=== PATIENT | male | born 1985 | race Two or more races ===

== ENCOUNTER → 2024-05-12 | Outpatient (CLI) | payer BC, SELFPAY ==
[2024-05-12 16:39] LABS: Alanine Aminotransferase 95 U/L (10-49); Albumin, Serum 4.6 gm/dL (3.5-5.0); Albumin/Globulin Ratio 1.7 (1.2-2.2); Alkaline Phosphatase 85 U/L (46-116); Anion Gap 8 (7-16); Aspartate Amino Transferase 51 U/L (0-34); BUN/Creatinine Ratio 11 Ratio (12-20); Bilirubin,Total 0.6 mg/dL (0.3-1.2); Blood Urea Nitrogen 14 mg/dL (9-23); Calcium 9.5 mg/dL (8.3-10.6); Calcium (Corrected) 9.5 mg/dL (8.5-10.1); Carbon Dioxide 24.3 mMol/L (20.0-31.0); Chloride 108 mMol/L (98-107); Creatinine (Component) 1.3 mg/dL (0.6-1.3); Globulin 2.7 gm/dL (2.3-3.5); Glucose 97 mg/dL (74-106); Osmolality,Calculated 279 (275-295); Potassium 3.8 mMol/L (3.4-5.1); Sodium 140 mMol/L (136-145); Total Protein 7.3 gm/dL (5.7-8.2); eGFR > 60 See Note
[2024-05-18 06:33] LABS: Testosterone,Total* 363 ng/dL (250-1100)
== END | disposition home or self-care (01) ==
LOC: COPL 15:30
PROVIDERS: PCP Family Medicine; Referring Provider Nurse Practitioner Family; Visit Provider Nurse Practitioner Family
DX: Z00.00 Encounter for general adult medical examination without abnormal findings (principal); R74.01 Elevation of levels of liver transaminase levels
CPT/HCPCS: 36415; 80053; 84403

== ENCOUNTER 2024-08-09 17:10 | Emergency (ER) | payer BC, SELFPAY ==
[2024-08-09 17:11] VITALS: BMI 41.8
--- NOTE | 2024-08-09 17:25 | XR_ITS ---
Examination: CT abdomen and pelvis without contrast. Coronal 3-D reconstructions. Sagittal 2-D reconstructions. Date and time of exam:August 09, 2024 1703 hours Indications: Sudden onset bilateral upper abdominal pain nausea vomiting beginning 3 hours ago CTDI: vol (mGy): 13.0 DLP: (mGycm): 879 Technique: Axial images of the abdomen have been obtained, 3 mm slice thickness Intravenous contrast material has not been administered. Low dose protocols were performed. One or more of the following dose reduction techniques were used; automated exposure control, adjustment of the mA and/or KV according to patient size, use of iterative reconstruction technique. Findings: No focal liver or splenic lesions No gallstones No pancreatic or adrenal mass No renal or ureteral calculi Multiple fluid distended small bowel loops Aorta normal size Normal appendix Colonic diverticulosis, no diverticulitis No prostatomegaly Contracted urinary bladder Mild osteopenia Impression: Small bowel obstruction pattern, recommend Gastrografin small bowel series follow-up
--- NOTE | 2024-08-09 17:25 | PD.EDRME ---
Rapid Medical Screening Exam RME Arrival date/time: 08/09/24 17:10 39-year-old male presents emergency department complaints of left-sided abdominal pain Chief Complaint: Abdominal Pain
[2024-08-09 17:27] VITALS: BP 148/98; PULSE 98; RESP 18; TEMP 36.9; O2SAT 99
[2024-08-09] MEDS: KETOROLAC INJ 30 MG/ML VIAL IM (17:49)
[2024-08-09] MEDS: HYDROcodone/APAP 5/325 TABLET 1 TAB PO (17:49)
[2024-08-09] MEDS: METOCLOPRAMIDE INJ 5 MG/ML VIAL 2 ML 10 MG IM (17:51)
[2024-08-09 17:59] LABS: Basophils % (Auto) 0 % (0-2.5); Eosinophils # (Auto) 0.1 Thou/mm3 (0.0-0.5); Eosinophils % (Auto) 1 % (0-10); Hematocrit 54.3 % (41.0-53.0); Immature Granulocytes % (Auto) 1 % (0-0); Immature Granulocytes Auto 0.18 Thou/mm3 (0.00-0.00); Lymphocytes # (Auto) 1.3 Thou/mm3 (1.0-4.8); Lymphocytes % (Auto) 9 % (10-50); Mean Corpuscular Hemoglobin 30.8 pg (25.0-35.0); Mean Corpuscular Volume 88 fL (80-100); Monocytes # (Auto) 0.9 Thou/mm3 (0.0-0.8); Monocytes % (Auto) 7 % (0-12); Neutrophils # (Auto) 11.2 Thou/mm3 (1.8-7.7); Neutrophils % (Auto) 82 % (37-80); Nucleated Red Blood Cell % 0 /100 WBC (0); Platelet Count 256 Thou/mm3 (140-440); RDW Standard Deviation 43.6 fL (35.1-43.9); Red Blood Count 6.16 Miln/mm3 (4.50-5.90); White Blood Count 13.7 Thou/mm3 (3.8-10.6)
[2024-08-09 18:10] VITALS: BP 163/92; PULSE 78; RESP 20; TEMP 36.8; O2SAT 94
--- NOTE | 2024-08-09 18:15 | EDNOTE_ITS ---
ED Abdominal Pain RME/HPI General Chief Complaint: Abdominal Pain Stated complaint: BILAT. UPPER ABD PAIN X3 HRS Time seen by provider: 08/09/24 18:20 Arrival date/time: 08/09/24 17:10 Source: patient Mode of arrival: ambulatory Limitations: no limitations RME / HPI RME / HPI narrative: 08/09/24 17:10 39-year-old male presents emergency department complaints of left-sided abdominal pain. Dr. Dawson?s Main ED Evaluation: 39-year-old male, accompanied by his spouse, presents with diarrhea that began yesterday, which his describes as constant and persistent. Today, his symptoms progressed to include nausea and excessive vomiting without blood. The patient also reports associated dizziness, tingling sensations, and severe abdominal pain, which he describes as excruciating. However, on examination, he states that his symptoms have improved after receiving pain relief here, and he now rates his pain as 2/10. He denies any prior history of gallbladder issues or a family history of gallbladder disease. Related Data Previous Rx's ?Medication ?Instructions ?Recorded amoxicillin 875 mg-potassium 1 tab PO Q12H #14 tabs clavulanate 125 mg tablet hydrocodone 5 mg-acetaminophen 325 1 tab PO Q8H PRN br eakthrough pain 03/18/23 mg tablet #10 tabs ibuprofen 800 mg tablet 800 mg PO Q8H PRN pain #20 t abs 03/19/23 doxycycline monohydrate 100 mg 100 mg PO BID Urinary t ract 08/09/24 capsule infection 7 days #14 caps ondansetron 4 mg disintegrating 4 mg PO Q6H PRN nausea and 08/09/24 tablet vomiting #14 tabs Allergies Allergy/AdvReac Type Severity Reaction Status Date / Time No Known Allergies Allergy Unknown Unverified 08/09/24 17:14 Review of Systems Review of Systems Systems Reviewed: All systems reviewed, normal except as documented Past Medical History Past Medical History CARDIAC: Negative Cardiac Disorders or Congestive Heart Failure RESPIRATORY: Negative Chronic Obstructive Pulmonary Disease (COPD) GASTROINTESTINAL: Positive Gastrointestinal Disorders and Diverticulitis GENITOURINARY: Negative Renal Disease ENDOCRINE: Negative Diabetes Mellitus Type 1 or Diabetes Mellitus Type 2 Social History SMOKING STATUS: Never smoker ED Exam Narrative Physical exam: GENERAL APPEARANCE: alert and oriented x 4, well-developed, well-nourished, no acute distress VITALS: All vitals were reviewed and the pulse ox is 94% on room air, which is normal according to my interpretation. HEENT: Normocephalic, atraumatic; pupils equal, round, reactive to light; EOMI; mucous membranes pink, moist; oropharynx clear NECK: Supple LUNGS: CTABL; no wheezes, no rales, no rhonchi HEART: Regular rate, regular rhythm; normal S1, S2; no murmurs ABDOMEN: non distended; normal BS; soft, moderate tenderness is present on palpation of the right upper quadrant, moderate to severe epigastric tenderness with voluntary guarding, no tenderness in the right lower quadrant on deep palpation; positive Nieves?s sign is noted, no guarding, no rebound; no masses, no organomegaly, no hernia BACK: no CVA tenderness EXTREMITIES: atraumatic; no edema NEUROLOGIC: awake; alert and oriented x4; cranial nerves II-XII grossly intact; no focal sensory or motor deficits PSYCHIATRIC: appropriate mood and affect SKIN: warm, dry, normal color; no rashes General Limitations: Present no limitations Course Quality Measures none Orders Category Date Time Status Bedside COVID-19 Antigen Test NOW Care 08/09/24 19:53 Completed Bedside Influenza A&B Antigen Test NOW Care 08/09/24 18:58 Completed Grapple Crew Leader Q4H START 00 Care 08/09/24 18:35 Completed Continuous Pulse Oximetry NOW Care 08/09/24 18:35 Completed EKG (ED ONLY) *Do not use* NOW Care 08/09/24 18:35 Completed Insert IV STAT Care 08/09/24 18:41 Completed Consult to General Surgery Stat Cons 08/09/24 19:[address] abdomen pelvis wo con Stat Exams 08/09/24 17:25 Completed EKG (ED Only) Stat Exams 08/09/24 18:35 Draft US gall bladder Stat Exams 08/09/24 19:10 Completed XR chest 1V portable Stat Exams 08/09/24 18:35 Completed CBC Stat Lab 08/09/24 17:46 Completed Comprehensive Metabolic Panel Stat Lab 08/09/24 17:46 Completed Lipase Stat Lab 08/09/24 17:46 Completed Magnesium Stat Lab 08/09/24 17:46 Completed Troponin I Stat Lab 08/09/24 17:46 Completed UA, C/S IF [Urinalysis, C/S if Indicated] Stat Lab 08/09/24 18:18 Completed Urine Culture Stat Lab 08/09/24 18:18 Received HYDROcodone*/APAP 5/325 [Tow 5/325] Med 08/09/24 17:24 Discontinued 1 tab PO X1 ONE HYDROmorphone INJ [Dilaudid Inj] Med 08/09/24 19:00 Discontinued 0.5 mg IVP PRN Ketorolac Inj [Toradol Inj] Med 08/09/24 17:24 Discontinued 30 mg IM X1 ONE Metoclopramide Inj [Reglan Inj] Med 08/09/24 17:24 Discontinued 10 mg IM X1 ONE Sodium Chloride 0.9% 1000 ml [Ns] 1,000 ml Med 08/09/24 18:40 Discontinued IV 999 mls/hr Sodium Chloride 0.9% 1000 ml [Ns] 1,000 ml Med 08/09/24 19:00 Discontinued IV 999 mls/hr Oxygen Delivery NOW RT 08/09/24 18:32 Completed Vital Signs Vital signs: Vital Signs Temperature 98.5 F 08/09/24 17:27 Pulse Rate 98 08/09/24 17:27 Respiratory Rate 18 08/09/24 17:27 Blood Pressure 148/98 H 08/09/24 17:27 Pulse Oximetry (%) 99 08/09/24 17:27 Oxygen Delivery Method Room Air 08/09/24 17:27 Abdominal Pain MDM MDM Narrative MDM Narrative:: Differential diagnoses include cholecystitis, choledocholithiasis, gallstone pancreatitis, pancreatitis, gastritis, and peptic ulcer disease. The patient is a 39-year-old male presenting with persistent diarrhea, nausea, excessive vomiting, and severe abdominal pain, which initially was described as excruciating but has improved with pain management. His symptoms are associated with dizziness and tingling sensations. 1907 Case d/w Dr. Bailey, general surgeon on-call, does not feel it is SBO at this time. Pending US gallbladder and IVF. 2240: Patient feels significantly better and is stable to be discharged home. Scribe Attestation: I, Cailin David, am scribing for and in the presence of Dr. Dawson. Provider Notation: Although this document has been carefully reviewed, there may still be some phonetic and other typographical errors. These errors are purely grammatical due to imperfections in the software program and should not be construed in any way to compromise the substance of the patient's medical care during this visit. Patient data External records reviewed:: [facility] previous records Clinical information provided by:: patient and spouse Social determinants that could affect healthcare access:: none Patient has the following chronic illnesses:: see PMH How is presenting disease/condition affected by chronic disease/condition?: un effected by Evaluation data The following diagnostics were reviewed and interpreted by me:: lab results, radiology exam(s) and EKG tracing(s) Lab and/or radiology exams considered but not ordered:: na Interpretation Summary: EKG performed at 18:51, according to my intepretation, shows normal sinus rhythm at a rate of 76 bpm, right axis deviation, T-wave inversions in lead I and aVL, and no evidence of STEMI. I personally reviewed the radiology data and agree with the radiologist's interpretation. Examination: AP chest single view Technique one AP portable upright chest single view Exam date and time: August 09, 2024 1839 hrs. Comparison November 03, 2013 Indications: Hypertension today. Findings: Normal heart size. Lungs are clear. Osseous structures are intact. Impression: No active disease Examination: CT abdomen and pelvis without contrast. Date and time of exam:August 09, 2024 1703 hours Indications: Sudden onset bilateral upper abdominal pain nausea vomiting beginning 3 hours ago Findings: No focal liver or splenic lesions No gallstones No pancreatic or adrenal mass No renal or ureteral calculi Multiple fluid distended small bowel loops Aorta normal size Normal appendix Colonic diverticulosis, no diverticulitis No prostatomegaly Contracted urinary bladder Mild osteopenia Impression: Small bowel obstruction pattern, recommend Gastrografin small bowel series follow-up Dictated By: Devendra Martinez MD [facility] Report Signed Patient: NATI MARTINEZ [facility]. Record#: [id number] Birthdate: 1985 Age/Sex: 39 / M Location: [facility], [place] Attending Dr: Ordering Physician: Marques Dawson MD Date of Service: 08/09/24 Procedure(s): US gall bladder Accession Number(s): [id number] cc: Felisha Mnoique; Devendra Martinez MD; Marques Dawson MD~ Examination: Abdomen sonogram, Limited Date and time of exam: July, 0941 hrs. Indications: Onset right upper abdominal pain beginning today Technique: Real-time rendon scale transabdominal sonographic images of the upper abdomen obtained. Findings: Suspicious for 1 mm tiny gallbladder polyp Negative for cholelithiasis, gallbladder wall 0.2 cm Common bile duct 0.2 cm Pancreatic head 3.3 cm Liver 17.3 cm fatty liver no focal liver lesions Normal hepatopedal portal venous flow Patent IVC Impression: 1 mm gallbladder polyp Negative for cholelithiasis, negative for cholecystitis Dictated By: Devendra Martinez MD Signed By: <Electronically signed by Devendra Martinez MD in OV> 08/09/24 2208 Medications / Prescriptions Medications or Prescriptions considered but not ordered:: na Medication administrations:: Medication Administration History Discontinued Medications Hydrocodone Bitart/Acetaminophen (Hydrocodone/Apap 5/325 Tablet) 1 tab PO X1 ONE Stop: 08/09/24 17:25 Last Admin: 08/09/24 17:49 Dose: 1 tab Documented By: ROSLYN Hydromorphone HCl (Hydromorphone Inj 2 Mg/Ml Vial) 0.5 mg IVP PRN ARTEMIO Stop: 08/14/24 18:59 Sodium Chloride (Ns) 1,000 mls @ 999 mls/hr IV .Q1H1M ONE Stop: 08/09/24 19:40 Last Infusion: 08/09/24 20:44 Dose: Infused Documented By: Admin: 08/09/24 18:54 Dose: 999 mls/hr Documented By: BD Sodium Chloride (Ns) 1,000 mls @ 999 mls/hr IV .Q1H1M ONE Stop: 08/09/24 20:00 Last Infusion: 08/09/24 20:44 Dose: Infused Documented By: Admin: 08/09/24 19:08 Dose: 999 mls/hr Documented By: BD Ketorolac Tromethamine (Ketorolac Inj 30 Mg/Ml Vial) 30 mg IM X1 ONE Stop: 08/09/24 17:25 Last Admin: 08/09/24 17:49 Dose: 30 mg Documented By: ROSLYN Metoclopramide HCl (Metoclopramide Inj 5 Mg/Ml Vial 2 Ml) 10 mg IM X1 ONE; Protocol Stop: 08/09/24 17:25 Last Admin: 08/09/24 17:51 Dose: 10 mg Documented By: ROSLYN as above Consultations Consultation(s) initiated? (list below): Yes Consultation #1 (Physician, Specialty, Details): see narrative Time: 19:07 Diagnosis Differential diagnosis abdominal pain: other (see narrative) Most likely diagnosis given after review of the tests above:: stomach flu, UTI Admission Indicated Admission indicated?: not indicated Admission Request Was there a request for admission?: No Disposition Plan Disposition Plan: Discharge Discharge Attestation Discharge Attestation: The patient and all family members were given an opportunity to ask questions a nd understood the discharge instructions. Discharge instructions specifically effects, indications for sooner follow up or return to the emergency department, and the expected course of current diagnosis. Patient condition: Stable Discharge Plan Plan Patient Disposition: HOME (Self Care) Disposition Comment: Stable for discharge Patient condition on transfer: Stable Prescriptions/Referrals Prescriptions/Med Rec: New ondansetron 4 mg tablet,disintegrating 4 mg PO Q6H PRN (Reason: nausea and vomiting) Qty: 14 0RF doxycycline monohydrate 100 mg capsule 100 mg PO BID 7 Days Qty: 14 0RF No Action amoxicillin-pot clavulanate 875-125 mg tablet 1 tab PO Q12H Qty: 14 0RF hydrocodone-acetaminophen 5-325 mg tablet 1 tab PO Q8H MDD 3 tabs/day PRN (Reason: breakthrough pain) Qty: 10 0RF ibuprofen 800 mg tablet 800 mg PO Q8H PRN (Reason: pain) Qty: 20 0RF Referrals: Felisha Monique FNP [Primary Care Provider] - In 1 week Problem List Clinical Impression: Vomiting, Diarrhea, Urinary tract infection Patient/Caregiver Discharge Instructions Discharge Activity: activity as tolerated Education Materials: Self-Care for Vomiting and Diarrhea, ED Bladder Infection, Male (Adult), ED Vomiting (Adult), ED Vomiting and Diarrhea ... Additional Instructions: Please return to the emergency department if you have any worsening or any further medical problems. Otherwise you should follow-up with your primary care doctor within the next several days. There are 2 prescriptions waiting for you at the pharmacy. One of them is called ondansetron. This is an antivomiting medicine that goes under your tongue. The other medicine is called doxycycline. This is your antibiotic. You should take this twice per day until they are completely gone even if you feel better before that. This is for your urinary tract infection. Print Language: Indian Stand Alone Forms: Tyra Award Info., Patient Portal Info Letter
[2024-08-09 18:22] LABS: Alanine Aminotransferase 206 U/L (10-49); Albumin/Globulin Ratio 1.6 (1.2-2.2); Alkaline Phosphatase 59 U/L (46-116); Anion Gap 14 (7-16); Aspartate Amino Transferase 145 U/L (0-34); BUN/Creatinine Ratio 7 Ratio (12-20); Bilirubin,Total 1.1 mg/dL (0.3-1.2); Blood Urea Nitrogen 8 mg/dL (9-23); Calcium 9.6 mg/dL (8.3-10.6); Calcium (Corrected) 9.6 mg/dL (8.5-10.1); Carbon Dioxide 22.8 mMol/L (20.0-31.0); Chloride 101 mMol/L (98-107); Creatinine (Component) 1.1 mg/dL (0.6-1.3); Estimated Creatinine Clearance 125.8 mL/min (>60); Globulin 3.2 gm/dL (2.3-3.5); Glucose 117 mg/dL (74-106); Lipase 57 U/L (12-53); Osmolality,Calculated 274 (275-295); Potassium 3.6 mMol/L (3.4-5.1); Sodium 138 mMol/L (136-145); Total Protein 8.2 gm/dL (5.7-8.2); eGFR > 60 See Note
[2024-08-09 18:30] LABS: Collection Type, Urine Clean Catch
[2024-08-09 18:33] VITALS: PULSE 79; RESP 19; RESP 90; O2SAT 95
--- NOTE | 2024-08-09 18:35 | XR_ITS ---
Examination: AP chest single view Technique one AP portable upright chest single view Exam date and time: August 09, 2024 1839 hrs. Comparison November 03, 2013 Indications: Hypertension today. Findings: Normal heart size. Lungs are clear. Osseous structures are intact. Impression: No active disease
--- NOTE | 2024-08-09 18:35 | EKG_ITS ---
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
[2024-08-09 18:38] LABS: Bacteria,Urine Rare; Bilirubin,Urine 1+ (Negative); Blood,Urine 1+ (Negative); Clarity,Urine Turbid (Clear/Hazy); Color,Urine Orange (Lt Yel-Yel); Glucose, Urine 1+ (Negative); Hyaline Casts,Urine < 1 /hpf (0-1); Ketones,Urine 1+ (Negative); Leukocyte Esterase,Urine Positive (Negative); Nitrite,Urine Negative (Negative); PH,Urine 6.5 (5.0-7.0); Protein,Urine 4+ (Neg - Trace); RBC,Urine 12 /hpf (0-3); Specific Gravity,Urine 1.043 (1.001-1.035); Squamous Epithelial Cell,Urine 3 /hpf (0-5); WBC,Urine 19 /hpf (0-5)
[2024-08-09 18:40] LABS: Culture Indicated,Urine Yes
[2024-08-09 18:43] VITALS: BP 163/92; PULSE 78; RESP 18; TEMP 37.5; O2SAT 93
[2024-08-09] MEDS: SODIUM CHLORIDE 0.9% 1000 ML 1,000 ML 999 ML IV ×2 (18:54→19:08)
[2024-08-09 19:07] LABS: Magnesium 1.6 mg/dL (1.6-2.6); Troponin I < 0.020 ng/mL (0.0-0.045)
[2024-08-09 19:08] VITALS: PULSE 80
--- NOTE | 2024-08-09 19:10 | XR_ITS ---
Examination: Abdomen sonogram, Limited Date and time of exam: July 0941 hrs. Indications: Onset right upper abdominal pain beginning today Technique: Real-time rendon scale transabdominal sonographic images of the upper abdomen obtained. Findings: Suspicious for 1 mm tiny gallbladder polyp Negative for cholelithiasis, gallbladder wall 0.2 cm Common bile duct 0.2 cm Pancreatic head 3.3 cm Liver 17.3 cm fatty liver no focal liver lesions Normal hepatopedal portal venous flow Patent IVC Impression: 1 mm gallbladder polyp Negative for cholelithiasis, negative for cholecystitis
[2024-08-09 23:08] VITALS: BP 126/55; PULSE 72; RESP 18; O2SAT 95
== END 2024-08-09 23:06 | disposition home or self-care (01) ==
PROVIDERS: Nurse Practitioner Primary Care; Emergency Provider Emergency Medicine; PCP Nurse Practitioner Family
DX: N39.0 Urinary tract infection, site not specified (principal); K82.4 Cholesterolosis of gallbladder; I10 Essential (primary) hypertension; R10.12 Left upper quadrant pain; R94.31 Abnormal electrocardiogram [ECG] [EKG]
CPT/HCPCS: 36415; 71045; 74176; 76705; 80053; 81001; 83690; 83735; 84484; 85025; 87086; 87400; 87811; 93005; 96372; 99284; J1885; J2765; J7030; A9270

== ENCOUNTER → 2024-09-27 | Outpatient (CLI) | payer BC, SELFPAY ==
[2024-09-27 16:06] LABS: Collection Type, Urine Clean Catch
[2024-09-27 17:55] LABS: Bacteria,Urine Rare; Bilirubin,Urine Negative (Negative); Blood,Urine Negative (Negative); Color,Urine Yellow (Lt Yel-Yel); Culture Indicated,Urine Not Indicated; Glucose, Urine Negative (Negative); Ketones,Urine 1+ (Negative); Leukocyte Esterase,Urine Negative (Negative); Nitrite,Urine Negative (Negative); Protein,Urine Trace (Neg - Trace); RBC,Urine 7 /hpf (0-3); Specific Gravity,Urine 1.032 (1.001-1.035); Squamous Epithelial Cell,Urine 2 /hpf (0-5); Urobilinogen,Urine Negative mg/dL (0.0-1.0); WBC,Urine 4 /hpf (0-5)
[2024-09-27 18:15] LABS: Clarity,Urine Turbid (Clear/Hazy)
== END | disposition home or self-care (01) ==
LOC: SLDO 15:33
PROVIDERS: PCP Student in an Organized Health Care Education/Training Program; Referring Provider Student in an Organized Health Care Education/Training Program; Visit Provider Student in an Organized Health Care Education/Training Program
DX: N39.0 Urinary tract infection, site not specified (principal)
CPT/HCPCS: 81001

== ENCOUNTER 2024-12-20 13:28 | Outpatient (AMB) | payer BC, SELFPAY ==
[2024-12-20 13:37] VITALS: BP 166/92; PULSE 69; RESP 18; TEMP 36.2; O2SAT 98; BMI 35.4
--- NOTE | 2024-12-20 13:37 | PD.GSCLVISIT ---
Vital Signs - [facility] 12/20/24 13:37 Height 1.8 m Height Method Stated Weight 114.929 kg Weight Measurement Method Standing Scale BMI 35.4 BP 166/92 H Blood Pressure Source Automatic Cuff Blood Pressure Location Left Upper Arm Position Sitting Respiration 18 Pulse 69 Pulse Source Monitor Temp 97.2 F Temp Source Temporal Artery Scan Pulse Oximetry (%) 98 Oxygen Delivery Method Room Air Med/Allergies Allergies & Medications Allergies No Known Allergies Allergy (Unknown, Verified 12/20/24 13:37) Medication Reconciliation amoxicillin 875 mg-potassium clavulanate 125 mg tablet 1 tab PO Q12H #14 tabs 03/18/23 [Rx Confirmed 12/20/24] hydrocodone 5 mg-acetaminophen 325 mg tablet 1 tab PO Q8H PRN breakthrough pain #10 tabs 03/18/23 [Rx Confirmed 12/20/24] ibuprofen 800 mg tablet 800 mg PO Q8H PRN pain #20 tabs 03/19/23 [Rx Confirmed 12/20/24] ondansetron 4 mg disintegrating tablet 4 mg PO Q6H PRN nausea and vomiting #14 tabs 08/09/24 [Rx Confirmed 12/20/24] oxycodone-acetaminophen 5 mg-325 mg tablet (Percocet) 1 tab PO Q4H PRN pain #60 tabs 12/20/24 [Rx] MA Intake Visit Data Collection New Patient or Established: Established Patient (seen at [facility] within 3 years) Seen by Clinical Staff ONLY (RN/MA): No Reason for Visit:: RECTAL PAIN Pain Present Currently: Yes Pain Location: Unable to identify Pain scale:: 8 PCP or OBGYN visit in last 3 months: Yes Smoking Status Smoking Status: Never smoker Immunization / Flu Flu Vaccine in the Last 12 Months: No Flu Vaccine Exclusion Criteria: No Exclusion Criteria Past Medical History Past Medical History CARDIAC: Negative Cardiac Disorders or Congestive Heart Failure RESPIRATORY: Negative Chronic Obstructive Pulmonary Disease (COPD) GASTROINTESTINAL: Positive Gastrointestinal Disorders and Diverticulitis GENITOURINARY: Negative Renal Disease ENDOCRINE: Negative Diabetes Mellitus Type 1 or Diabetes Mellitus Type 2 Social History SMOKING STATUS: Smoking status: Never smoker HPI HPI Narrative 39M referred for anal fissure. Pt states he began having severe perianal pain suddenly 2 weeks ago, at the time he was straining to have a BM but he states that he generally has soft BMs without any diarrhea or straining. The pain has been unbearable making it difficult for him to sit, and he has used compound cream which has provided some relief. He has not yet tried any sitz baths and has not used any other remedy. Pt underwent colonoscopy 12/[address] Collier due to findings of colitis on CT, and the scope showed mild erythema of the left colon of which biopsies were negative PMH: None PShx: None Meds: None Allergies: NKDA Social hx: Nonsmoker Family hx: No known malignancies ROS Review of Systems Systems Reviewed: All systems reviewed, normal except as documented Objective/Exam General General Appearance: alert, cooperative and well groomed Resp Respiratory exam: Absent respiratory distress Rectal Rectal exam: Present other (perianal fissure with sentinel pile at the anterior midline of anus, exquisitely tender, no bleeding or drainage) Assessment & Plan Diagnosis / Problem List (1) Anal fissure: Status: Acute Plan 39M with severely painful anal fissure. As he does not have any constipation or diarrhea I offered botox injection to the anal sphincters and enumerated risks of persistent/recurrent fissure, pain and fecal incontinence. Pt expressed understanding and would like to proceed as soon as possible. In the meantime he requested pain medication, I prescribed percocet and pt understands that it can cause constipation so will take as little as needed to control his symptoms Office Procedures GNS Level of Care Nursing/Assessment Patient Status: Established Patient Nursing Assessment/Reassesment: Medication Reconciliation, Update PMH in EMR and Vital Signs Coordination of Care: Complex Care and Chronic Disease 1-5, Consent,records obtained, informed consent, Education Simp Pt/Fam, Results/Orders obtained and Staff clarify orders Established Patient Charge Established Patient Point Assignment: 90 Established Patient Point Charge: EP Level 3 (80-115) Patient Portal Questionaires Social History Tobacco History Smoking Status: Never smoker Review of Systems Report any current symptoms Only answer those that you have currently: Past Medical History Past Medical History Have you ever been diagnosed with any of the following: Cardiology Problems Congestive Heart Failure: No Respiratory Problems Chronic Obstructive Pulmonary Disease (COPD): No Stomache/Intestinal Problems Diverticulitis: Yes Genital/Urinary Problems Renal Disease: No Endocrine Problems Diabetes Mellitus Type 1: No Diabetes Mellitus Type 2: No
== END 2024-12-20 14:16 | disposition home or self-care (01) ==
LOC: HODSRG 13:28
PROVIDERS: PCP Internal Medicine; Referring Provider Specialist; Supervising Provider Surgery; Visit Provider Surgery
DX: K60.2 Anal fissure, unspecified (principal)
CPT/HCPCS: 99213; G0463

== ENCOUNTER → 2024-12-20 | Outpatient (CLI) | payer BC, SELFPAY ==
--- NOTE | 2024-12-20 10:58 | XR_ITS ---
Examination: CT abdomen with intravenous contrast CT pelvis with intravenous contrast 2-D coronal reconstructions 2-D sagittal reconstructions Date and time of exam:December 20, 2024 1208 hours INDICATIONS: Abdominal pain distention rectal pain one week. Small bowel obstruction pattern on CT abdomen pelvis August 09, 2024 CTDI: vol (mGy) 10.7 DLP: (mGycm) 681 Technique: Multiple axial sections of the abdomen and pelvis have been obtained. 64 slice high-resolution scanner used. 3 mm axial sections have been obtained, post intravenous injection 60 cc [id number] 2-D sagittal, coronal reconstructions obtained. Low dose protocols were performed. One or more of the following dose reduction techniques were used; automated exposure control, adjustment of the mA and/or KV according to patient size, use of iterative reconstruction technique. Findings: No focal liver or splenic lesions No gallstones No pancreatic or adrenal mass No renal or ureteral calculi, no hydronephrosis Aorta normal size Normal appendix Normal appearing small bowel Colonic diverticulosis Normal seminal vesicles No prostatomegaly No thickening of the rectal wall Urinary bladder intact No perianal abscess Mild osteopenia IMPRESSION: Normal appendix Normal small bowel Colonic diverticulosis, no diverticulitis Negative for prostatomegaly No thickening of the rectal wall
== END | disposition home or self-care (01) ==
PROVIDERS: PCP Nurse Practitioner Family; Referring Provider Specialist; Visit Provider Specialist
DX: K57.30 Diverticulosis of large intestine without perforation or abscess without bleeding (principal)
CPT/HCPCS: 74177; A4649; Q9967

== ENCOUNTER 2024-12-22 23:20 | Emergency (ER) | payer BC, SELFPAY ==
[2024-12-22 23:21] VITALS: BMI 34.8
[2024-12-22 23:25] VITALS: BP 169/116; PULSE 75; RESP 20; TEMP 37.1; O2SAT 96
[2024-12-22] MEDS: KETOROLAC INJ 60 MG/2 ML VIAL IM (23:53)
[2024-12-22] MEDS: fentaNYL CIT INJ 50 mCg/ML AMP 2ML 100 MCG IM (23:53)
--- NOTE | 2024-12-23 05:33 | PD.EDSKIN ---
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 Patient has follow-up with Dr. Collier and Dr. Jimenez (pending insurance approval for Botox injection). Patient has a normal colonoscopy last year and recent normal CT. Limitations: no limitations Related Data Previous Rx's ?Medication ?Instructions ?Recorded amoxicillin 875 mg-potassium 1 tab PO Q12H #14 tabs 03/18/23 clavulanate 125 mg tablet hydrocodone 5 mg-acetaminophen 325 1 tab PO Q8H PRN breakthrough pain 03/18/23 mg tablet #10 tabs ibuprofen 800 mg tablet 800 mg PO Q8H PRN pain #20 tabs 03/19/23 ondansetron 4 mg disintegrating 4 mg PO Q6H PRN nausea and 08/09/24 tablet vomiting #14 tabs oxycodone-acetaminophen 5 mg-325 1 tab PO Q4H PRN pain #60 tabs 12/20/24 mg tablet (Percocet) Allergies Allergy/AdvReac Type Severity Reaction Status Date / Time No Known Allergies Allergy Unknown Verified 12/22/24 23:21 Review of Systems Review of Systems Systems Reviewed: All systems reviewed, normal except as documented Constitutional Constitutional: Reports system reviewed and no additional complaints, except as documented, Denies fever(s) and Denies headache(s) ENT Ears, Nose, Mouth, and Throat: Denies disequilibrium and Denies headache(s) Cardiovascular Cardiovascular: Reports system reviewed and no additional complaints, except as documented, Denies chest pain and Denies dyspnea Respiratory Respiratory: Reports system reviewed and no additional complaints, except as documented, Denies cough and Denies dyspnea Gastrointestinal Gastrointestinal: Reports system reviewed and no additional complaints, except as documented, Denies abdominal pain, Denies nausea and Denies vomiting Integumentary/Breasts Skin/Breast: Reports as per HPI and Reports skin pain Neurologic Neurologic: Reports system reviewed and no additional complaints, except as documented, Denies confusion, Denies disequilibrium and Denies headache(s) Psychiatric Psychiatric: Denies confusion Past Medical History Past Medical History CARDIAC: Negative Cardiac Disorders or Congestive Heart Failure RESPIRATORY: Negative Chronic Obstructive Pulmonary Disease (COPD) GASTROINTESTINAL: Positive Gastrointestinal Disorders and Diverticulitis GENITOURINARY: Negative Renal Disease ENDOCRINE: Negative Diabetes Mellitus Type 1 or Diabetes Mellitus Type 2 Social History SMOKING STATUS: Never smoker ED Exam General Limitations: Present no limitations General appearance: Present alert and in no apparent distress Head Head exam: Present atraumatic Eye Eye exam: Present normal appearance, PERRL and EOMI ENT ENT exam: Present normal exam, normal oropharynx and mucous membranes moist Neck Neck exam: Present normal inspection, full ROM and trachea midline Chest Chest inspection: Present normal inspection and symmetric chest wall rise Respiratory Respiratory exam: Present normal lung sounds bilaterally Cardiovascular Cardiovascular exam: Present regular rate, normal rhythm and normal heart sounds Abdominal Exam Abdominal exam: Present soft and normal bowel sounds Extremities Exam Extremities exam: Present normal inspection and full ROM Back Exam Back exam: Present normal inspection and full ROM Neurological Exam Neurological exam: Present alert, oriented X3 and CN II-XII intact Psychiatric Psychiatric exam: Present normal affect and normal mood Skin Skin exam: Present warm, dry, intact and normal color Course Quality Measures none Orders Category Date Time Status Ketorolac Inj [Toradol Inj] Med 12/22/24 23:40 Discontinued 60 mg IM X1 ONE fentaNYL INJ [Sublimaze Inj] Med 12/22/24 23:40 Discontinued 100 mcg IM X1 ONE Vital Signs Vital signs: Vital Signs Temperature 98.7 F 12/22/24 23:25 Pulse Rate 75 12/22/24 23:25 Respiratory Rate 20 12/22/24 23:25 Blood Pressure 169/116 H 12/22/24 23:25 Pulse Oximetry (%) 96 12/22/24 23:25 Oxygen Delivery Method Room Air 12/22/24 23:25 O2 at 96% on RA and WNLs Skin / Abscess / Foreign Body MDM Narrative MDM Narrative:: 39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 Patient has follow-up with Dr. Collier and Dr. Jimenez (pending insurance approval for Botox injection). Patient has a normal colonoscopy last year and recent normal CT. Physical exam reveals patient who appears to be in pain. No ab tenderness. Patient is afebrile and alert. Meds and student loan counselor given. Patient data External records reviewed:: [facility] previous records Clinical information provided by:: patient Social determinants that could affect healthcare access:: none Patient has the following chronic illnesses:: none How is presenting disease/condition affected by chronic disease/condition?: no chronic disease Evaluation data The following diagnostics were reviewed and interpreted by me:: other (specify) (none) Lab and/or radiology exams considered but not ordered:: not ordered Interpretation Summary: n/a Medications / Prescriptions Medications or Prescriptions considered but not ordered:: ordered Medication administrations:: Medication Administration History Discontinued Medications Fentanyl Citrate (Fentanyl Cit Inj 50 Mcg/Ml Amp 2ml) 100 mcg IM X1 ONE Stop: 12/22/24 23:41 Last Admin: 12/22/24 23:53 Dose: 100 mcg Documented By: LUCAS Ketorolac Tromethamine (Ketorolac Inj 60 Mg/2 Ml Vial) 60 mg IM X1 ONE Stop: 12/22/24 23:41 Last Admin: 12/22/24 23:53 Dose: 60 mg Documented By: LUCAS above Consultations Consultation(s) initiated? (list below): No Diagnosis Skin/Abscess Differential Diagnosis: abscess of skin or subcutaneous tissue, viral exanthem, dermatophytosis, urticaria, herpes zoster, allergic reaction to drug, cellulitis, eczema, insect bites, impetigo, contact dermatitis and other (anal fissure) Most likely diagnosis given after review of the tests above:: anal fissure Admission Indicated Admission indicated?: not indicated Admission Request Was there a request for admission?: No Disposition Plan Disposition Plan: Discharge Discharge Attestation Discharge Attestation: The patient and all family members were given an opportunity to ask questions and understood the discharge instructions. Discharge instructions specifically effects, indications for sooner follow up or return to the emergency department, and the expected course of current diagnosis. Patient condition: Stable Discharge Plan Plan Patient Disposition: HOME (Self Care) Discharge Disposition comment: Stable Prescriptions/Referrals Prescriptions/Med Rec: No Action oxycodone-acetaminophen [Percocet] 5-325 mg tablet 1 tab PO Q4H MDD 12 tabs PRN (Reason: pain) Qty: 60 0RF Rx Instructions: Take 1 to 2 tablets every 4-6 hours as needed for severe pain amoxicillin-pot clavulanate 875-125 mg tablet 1 tab PO Q12H Qty: 14 0RF hydrocodone-acetaminophen 5-325 mg tablet 1 tab PO Q8H MDD 3 tabs/day PRN (Reason: breakthrough pain) Qty: 10 0RF ibuprofen 800 mg tablet 800 mg PO Q8H PRN (Reason: pain) Qty: 20 0RF ondansetron 4 mg tablet,disintegrating 4 mg PO Q6H PRN (Reason: nausea and vomiting) Qty: 14 0RF Problem List Clinical Impression: Anal fissure Patient/Caregiver Discharge Instructions Education Materials: Understanding Anal Fissures Additional Instructions: Please follow-up with PCP within 24-48 hours and return immediately if symptoms worsen. Keep using cream. Can call Dr. Jimenez if you want to do Botox injection out of pocket vs waiting for insurance. Print Language: Lithuanian Stand Alone Forms: Patient Portal Info Letter PA/BENDING FRAME OPERATOR Supervising Physician PA/BENDING FRAME OPERATOR Supervising Physician: Dr. Fraser
== END 2024-12-22 23:56 | disposition home or self-care (01) ==
PROVIDERS: Emergency Provider Emergency Medicine; PCP Family Medicine
DX: K60.2 Anal fissure, unspecified (principal)
CPT/HCPCS: 96372; 99283; J1885; J3010

== ENCOUNTER 2024-12-29 10:00 | Day surgery (SDC) | payer BC, SELFPAY ==
[2024-12-28 07:43] VITALS: BMI 36.3
[2024-12-28 09:19] LABS: Basophils # (Auto) 0.0 Thou/mm3 (0.0-0.2); Basophils % (Auto) 1 % (0-2.5); Eosinophils # (Auto) 0.2 Thou/mm3 (0.0-0.5); Eosinophils % (Auto) 3 % (0-10); Hematocrit 52.5 % (41.0-53.0); Hemoglobin 18.6 g/dL (13.5-16.0); Immature Granulocytes Auto 0.01 Thou/mm3 (0.00-0.00); Lymphocytes # (Auto) 2.3 Thou/mm3 (1.0-4.8); Lymphocytes % (Auto) 38 % (10-50); Mean Corpuscular HGB Conc 35.4 g/dl (31.0-37.0); Mean Corpuscular Hemoglobin 29.8 pg (25.0-35.0); Mean Corpuscular Volume 84 fL (80-100); Monocytes # (Auto) 0.5 Thou/mm3 (0.0-0.8); Monocytes % (Auto) 7 % (0-12); Neutrophils # (Auto) 3.2 Thou/mm3 (1.8-7.7); Neutrophils % (Auto) 51 % (37-80); Nucleated Red Blood Cell # 0.00 Thou/mm3 (0.00-0.00); Nucleated Red Blood Cell % 0 /100 WBC (0); Platelet Count 177 Thou/mm3 (140-440); RDW Standard Deviation 39.7 fL (35.1-43.9); Red Blood Count 6.24 Miln/mm3 (4.50-5.90); White Blood Count 6.2 Thou/mm3 (3.8-10.6)
[2024-12-28 09:27] LABS: Anion Gap 9 (7-16); BUN/Creatinine Ratio 12 Ratio (12-20); Blood Urea Nitrogen 12 mg/dL (9-23); Calcium 9.0 mg/dL (8.3-10.6); Carbon Dioxide 28.3 mMol/L (20.0-31.0); Chloride 106 mMol/L (98-107); Creatinine (Component) 1.0 mg/dL (0.6-1.3); Estimated Creatinine Clearance 124.7 mL/min (>60); Glucose 95 mg/dL (74-106); Osmolality,Calculated 284 (275-295); Potassium 4.5 mMol/L (3.4-5.1); Sodium 143 mMol/L (136-145); eGFR > 60 See Note
[2024-12-28 09:35] LABS: INR 1.1 (0.9-1.3); Partial Thromboplastin Time 31.0 Seconds (22.0-36.0); Prothrombin Time 11.9 Seconds (9.0-12.2)
--- NOTE | 2024-12-28 15:23 | SUR.PREOP ---
Pt notified to come in at 1000 tomorrow.
[2024-12-29] VITALS (9 sets, daily range): BP systolic 106–127; BP diastolic 45–71; PULSE 52–64; RESP 11–14; TEMP 36.1–36.6; O2SAT 96–100; BMI 37.2
[2024-12-29] MEDS: RINGERS LACTATED 1000 ML 1,000 ML 20 ML IV (10:53)
--- NOTE | 2024-12-29 13:04 | PD.SUROPNT ---
Date of Procedure 12/29/24 Pre Op Diagnosis Anal fissure Post Op Diagnosis Same Procedure Injection of Botox to anal sphincter Findings Posterior midline anal fissure Procedure Description After discussion of risks and benefits, patient was brought to the operating room, SCDs were placed and general anesthesia was induced. He was placed in lithotomy position with proper padding and was prepped and draped in usual sterile fashion. After timeout a visual inspection was performed as there was limited visualization in the office due to extreme pain. Patient was noted to have a posterior midline anal fissure and [place] was otherwise normal with no palpable masses or areas of firmness. Before the procedure the 100 units of Botox had been mixed with 2 cc of sterile saline. 1 cc of this mixture was then drawn up. A Abdalla retractor was placed into the anal canal and on the right side of the anus the space between the internal and external anal sphincters was palpated. 0.5 cc of the Botox/saline mixture was injected at the site. The same procedure was done on the left side of the anus. There was some oozing from the anal fissure which was controlled with direct pressure. A local block was performed with 20 cc of half percent Marcaine. The area was covered with an abdominal pad which was secured with surgical underwear. Patient was returned to supine position and extubated without complication. He was brought to PACU in stable condition Pathology / specimen None Estimated Blood Loss 10 Surgeon Lynne Jimenez MD Surgical Staff Operation Date: 12/29/24 12:15 <No data on this case meets the specified criteria>
--- NOTE | 2024-12-29 13:07 | ESDS_ITS ---
Planned Discharge Date 12/29/24 DS: Providers Provider Primary care physician: JOSE Carranza Attending Provider on Admission: Lynne Jimenez MD Attending Provider on DC: Lynne Jimenez MD Discharging Provider: Lynne Jimenez MD Diagnosis Discharge Diagnosis (1) Anal fissure: Status: Acute Problem List Completed Was Problem List Reviewed/Reconciled?: Yes Exam Vital Signs Temp Pulse Resp BP Pulse Ox 97.1 F 64 12 127/66 97 12/29/24 10:36 12/29/24 10:36 12/29/24 10:36 12/29/24 10:36 12/29/24 10:36 Discharge Plan Plan Patient Disposition: HOME (Self Care) Prescriptions/Referrals Prescriptions/Med Rec: New oxycodone-acetaminophen [Percocet] 5-325 mg tablet 2 tab PO Q4H MDD 12 tabs PRN (Reason: pain) Qty: 60 0RF Rx Instructions: Take 1-2 tablets every 4-6 hours as needed for severe pain No Action oxycodone-acetaminophen [Percocet] 5-325 mg tablet 1 tab PO Q4H MDD 12 tabs PRN (Reason: pain) Qty: 60 0RF Rx Instructions: Take 1 to 2 tablets every 4-6 hours as needed for severe pain Referrals: Felisha Monique FNP [Primary Care Provider] - Lynne Jimenez MD [Physician] - (You will receive a phone call to confirm a follow-up appointment with me in 4 weeks) Patient/Caregiver Discharge Instructions Other Discharge Activity Instructions:: Avoid constipation and diarrhea You may resume sitz baths as needed for pain and bleeding today 12/29/24 If you develop difficulty urinating, fever or pain not controlled by medications please seek care in ER Education Materials: Understanding Anal Fissures Print Language: Indonesian Stand Alone Forms: Tyra Award Info., Patient Portal Info Letter Discharge Order Discharge Orders: Discharge (Routine); Ordered 12/29/24 Ordered By: Lynne Jimenez Results Results: Laboratory Laboratory results: results reviewed PROCEDURES: Procedure Date 12/29/24 Procedures Injection of Botox to anal sphincter
--- NOTE | 2024-12-29 13:23 | SUR.PHASEI ---
1307: Pt received in [facility] via gurney. Report from Ryan BADILLO and Dr. Gordillo. LMA in place. Resp even, unlabored. VS stable. Pt has ABD dressing at rectal area secured with mesh underwear. 1313: Pt aroused. LMA dc'd. Resp even, unlabored. No c/o pain.
--- NOTE | 2024-12-29 14:03 | SUR.PHASEII ---
1330: Pt more awake, alert. Resp even, unlabored. VS stable. Pt sitting up tolerating po fluids with no difficulty swallowing and no n/v.
--- NOTE | 2024-12-29 15:09 | SUR.PHASEII ---
Addendum entered by Minerva Henderson RN 12/29/24 15:16: 1410 note timed in error. Time should reflect 1428. Original Note: 1350: Pt IN stable. VS stable. Denies pain. States he does have some discomfort from existing anal fissure which he had pre-op. 1410: Pt fully awake, oriented x3. Pt dressed and assisted to transport chair. Ambulation steady. Pt and son stated understanding of discharge instructions. Dr. Jimenez provided instructions for botox procedure which were reviewed with pt. Pt also instructed to supervisor opening and picking his prescription at his pharmacy. Pt discharged from [facility] in stable condition.
== END 2024-12-29 14:28 | disposition home or self-care (01) ==
PROVIDERS: PCP Nurse Practitioner Family; Referring Provider Surgery; Visit Provider Surgery
PROC: (CPT 46505; principal; 2024-12-29 12:00)
DX: K60.2 Anal fissure, unspecified (principal)
CPT/HCPCS: 46505; 36415; 80048; 85025; 85610; 85730; A4217; A4649; J0131; J1100; J1885; J2250; J2405; J2704; J3010; J3490; J7120

== ENCOUNTER 2025-01-15 20:43 | Emergency (ER) | payer BC, SELFPAY ==
[2025-01-15 20:45] VITALS: BMI 34.5
[2025-01-15 20:57] VITALS: BP 174/105; PULSE 92; RESP 17; TEMP 38; O2SAT 97
[2025-01-15 21:42] LABS: Strep A Rapid Negative (Negative)
[2025-01-15] MEDS: cefTRIAXone 1,000 MG, LIDOCAINE 1% 20 ML 2.1 ML IM (21:51)
[2025-01-15] MEDS: KETOROLAC INJ 60 MG/2 ML VIAL 30 MG IM (21:52)
[2025-01-15] MEDS: DEXAMETHASONE SOD PHOS INJ 10 MG/ML VIAL IM (21:52)
--- NOTE | 2025-01-15 22:32 | EDNOTE_ITS ---
ED Dental RME/HPI General Chief complaint: General Adult/Misc Complain Stated complaint: THROAT PAIN,,EAR PAIN Time Seen by Provider: 01/15/25 20:51 Arrival date/time: 01/15/25 20:43 This is a case of 39-year-old male with no medical history came in in the emergency room due to sore throat for 3 days associated with left ear pain no drooling of saliva no hoarseness of voice patient have history of strep throat in the past persistence of the symptoms this patient decided to sought consult here in the emergency room Limitations: no limitations Related Data Previous Rx's ?Medication ?Instructions ?Recorded oxycodone-acetaminophen 5 mg-325 1 tab PO Q4H PRN pain #60 tabs 12/20/25 mg tablet (Percocet) oxycodone-acetaminophen 5 mg-325 2 tab PO Q4H PRN pain #60 tabs 12/29/ mg tablet (Percocet) amoxicillin 875 mg-potassium 1 tab PO BID 10 days #20 tabs 01/15/25 clavulanate 125 mg tablet lidocaine HCl 2 % mucosal solution 10 ml PO Q4HR PRN s ore throat #100 01/15/25 (Lidocaine Viscous) mL prednisone 20 mg tablet 20 mg PO QDAY 5 days #5 tabs 01/15/25 Allergies Allergy/AdvReac Type Severity Reaction Status Date / Time No Known Allergies Allergy Unknown Verified 01/15/25 20:44 Review of Systems Review of Systems Systems Reviewed: All systems reviewed, normal except as documented Constitutional Constitutional: Reports system reviewed and no additional complaints, except as documented, Reports as per HPI and Denies headache(s) ENT Ears, Nose, Mouth, and Throat: Reports system reviewed and no additional complaints, except as documented, Reports as per HPI, Denies abnormal hearing, Denies bleeding gums, Denies change in voice, Denies dental pain, Denies disequilibrium, Denies dizziness, Denies dry mouth, Denies dysphagia, Denies ear discharge, Reports otalgia, Denies epistaxis, Denies facial pain, Denies halitosis, Denies headache(s), Denies hearing loss, Denies hoarseness, Denies lip swelling, Denies mouth lesions, Denies mouth pain, Denies nasal congestion, Denies nasal discharge, Denies nasal obstruction, Denies nasal trauma, Denies neck mass, Denies neck pain, Denies nose pain, Denies odynophagia, Denies post nasal drip, Denies sinus pain, Denies sinus pressure, Reports sore throat, Denies throat swelling, Denies tinnitus, Denies tongue swelling and Denies vertigo Cardiovascular Cardiovascular: Reports system reviewed and no additional complaints, except as documented and Reports as per HPI Respiratory Respiratory: Reports system reviewed and no additional complaints, except as documented and Reports as per HPI Gastrointestinal Gastrointestinal: Reports system reviewed and no additional complaints, except as documented, Reports as per HPI, Denies dysphagia and Denies odynophagia Musculoskeletal Musculoskeletal: Reports system reviewed and no additional complaints, except as documented, Reports as per HPI and Denies neck pain Neurologic Neurologic: Reports system reviewed and no additional complaints, except as documented, Reports as per HPI, Denies abnormal hearing, Denies disequilibrium, Denies dizziness, Denies headache(s) and Denies vertigo Allergic/Immunologic Allergic/Immunologic: Denies lip swelling, Denies throat swelling and Denies tongue swelling Past Medical History Past Medical History NEUROLOGIC: Negative Neurological Disorders or Seizures CARDIAC: Negative Cardiac Disorders or Congestive Heart Failure RESPIRATORY: Negative Chronic Obstructive Pulmonary Disease (COPD) GASTROINTESTINAL: Positive Gastrointestinal Disorders and Diverticulitis GENITOURINARY: Negative Genitourinary Disorders or Renal Disease MUSCULOSKELETAL: Negative Musculoskeletal Disorders ENDOCRINE: Negative Endocrine Disorders, Diabetes Mellitus Type 1 or Diabetes Mellitus Type 2 HEMATOLOGIC: Negative Blood Disorders OTHER HISTORY: Negative Hospitalization, Autoimmune Disease, Shingles, Blood T ransfusions, Anesthesia Reactions, MRSA, Clostridium Difficile or Cancer Family History FAMILY HISTORY: Negative Family Psychiatric Problems, Family Respiratory Disorders, Family Cardiac Disorders, Family Gastrointestinal Problems, Family Cancer, Family Surgery or Family Anesthesia Reaction Surgical History SURGICAL: Positive Nose Surgery (nasoplasty) Social History SMOKING STATUS: Never smoker ED Exam General Limitations: Present no limitations General appearance: Present alert, in no apparent distress and other (Patient is awake alert oriented not in distress nontoxic looking well-hydrated well- nourished) Head Head exam: Present atraumatic; Absent normocephalic or normal inspection Eye Eye exam: Present normal appearance, PERRL and EOMI ENT ENT exam: Present normal exam, normal oropharynx and mucous membranes moist Expanded ENT Exam External ear exam: Present other (Noted ear and nose were normal noted pharynx red bilateral tonsils were red swollen with exudate uvula midline no lesion no swelling no drooling of saliva no peritonsillar abscess no muffled voice no hot potato voice) Neck Neck exam: Present normal inspection, full ROM and trachea midline; Absent te nderness, meningismus, lymphadenopathy or thyromegaly Chest Chest inspection: Present normal inspection and symmetric chest wall rise; Absent tenderness Respiratory Respiratory exam: Present normal lung sounds bilaterally; Absent respiratory distress, wheezes, stridor, accessory muscle use or prolonged expiratory phase Cardiovascular Cardiovascular exam: Present regular rate, normal rhythm and normal heart sounds; Absent bradycardia, tachycardia, irregular rhythm, systolic murmur or diastolic murmur Abdominal Exam Abdominal exam: Present soft and normal bowel sounds Extremities Exam Extremities exam: Present normal inspection and full ROM Back Exam Back exam: Present normal inspection and full ROM Neurological Exam Neurological exam: Present alert, oriented X3, CN II-XII intact, normal gait and reflexes normal; Absent motor sensory deficit Psychiatric Psychiatric exam: Present normal affect and normal mood Skin Skin exam: Present warm, dry, intact and normal color Course Quality Measures none Orders Category Date Time Status Strep A Rapid Stat Lab 01/15/25 21:05 Completed Dexamethasone Inj [Decadron Inj] Med 01/15/25 21:44 Discontinued 10 mg IM X1 ONE Ketorolac Inj [Toradol Inj] Med 01/15/25 21:44 Discontinued 30 mg IM X1 ONE cefTRIAXone [Rocephin] 1,000 mg Med 01/15/25 21:44 Discontinued Lidocaine 1% 20 ml [Xylocaine 1% 20 ML] 2.1 ml IM X1 Vital Signs Vital signs: Vital Signs Temperature 100.4 F 01/15/25 20:57 Pulse Rate 92 01/15/25 20:57 Respiratory Rate 17 01/15/25 20:57 Blood Pressure 174/105 H 01/15/25 20:57 Pulse Oximetry (%) 97 01/15/25 20:57 Oxygen Delivery Method Room Air 01/15/25 20:57 Patient is febrile at 100.4 not tachycardic not tachypneic BP initially was 175/105 I rechecked patient after giving Toradol and noted to be 145/95 patient also temperature was rechecked and noted to be 99.5 patient is not hypoxic oxygen saturation is 97% in room air Dental / Oral MDM Narrative MDM Narrative:: This is a case of 39-year-old male with no medical history came in in the emergency room due to sore throat for 3 days associated with left ear pain no drooling of saliva no hoarseness of voice patient have history of strep throat in the past persistence of the symptoms this patient decided to sought consult here in the emergency room physical examination patient is awake alert oriented not in distress nontoxic looking well-hydrated well-nourished throat exams bilateral tonsils were red swollen with exudate pharynx red no peritonsillar abscess no drooling of saliva no muffled voice no hot potato voice uvula midline normal exam your exam is also normal the rest of the physical examination and neurological exam is normal strep throat is negative Cent[facility] criteria 06/26 patient was given ceftriaxone IM here in the emergency room and dexamethasone along with Toradol for pain patient will follow-up with PCP in 2 days for evaluation worsening symptoms she will he will return to the emergency room immediately or call 911 patient was prescribed with Augmentin for further exudative tonsillitis dexamethasone and lidocaine viscous. For sore throat Patient was discharged with comfortable condition walking with stable gait. Patient verbalized no further complains explained diagnosis and answered patient question. Patient is comfortable with the proposed management plan including the need to follow up with his/her primary care physician and any specialist if applicable Discussed patient for any urgent condition or worsening sx, He/She needed to go to emergency room immediately or call 911. Patient acknowledge the responsibility to follow up as instructed and to monitor her/his symptoms. For any persistence of the symptoms for more than 3-5 days return precaution advised. Discussed the result of the test and was given printed discharge instruction Patient data External records reviewed:: [facility] previous records Clinical information provided by:: none Social determinants that could affect healthcare access:: none Patient has the following chronic illnesses:: None How is presenting disease/condition affected by chronic disease/condition?: no chronic disease Evaluation data The following diagnostics were reviewed and interpreted by me:: lab results Lab and/or radiology exams considered but not ordered:: Reviewed Interpretation Summary: Reviewed Medications / Prescriptions Medications or Prescriptions considered but not ordered:: Given Medication administrations:: Medication Administration History Discontinued Medications Ceftriaxone Sodium 1,000 mg/ (Lidocaine HCl 2.1 ml) 0 mg IM X1 ONE Stop: 01/15/25 21:45 Last Admin: 01/15/25 21:51 Dose: 1,000 mg Documented By: BD Dexamethasone Sodium Phosphate (Dexamethasone Sod Phos Inj 10 Mg/Ml Vial) 10 mg IM X1 ONE Stop: 01/15/25 21:45 Last Admin: 01/15/25 21:52 Dose: 10 mg Documented By: BD Ketorolac Tromethamine (Ketorolac Inj 60 Mg/2 Ml Vial) 30 mg IM X1 ONE Stop: 01/15/25 21:45 Last Admin: 01/15/25 21:52 Dose: 30 mg Documented By: BD Given Consultations Consultation(s) initiated? (list below): No Diagnosis Dental Differential Diagnosis: other (Pharyngitis tonsillitis laryngitis) Most likely diagnosis given after review of the tests above:: Exudative tonsillitis Admission Indicated Admission indicated?: not indicated Explain why admission is indicated or not indicated:: Not indicated Admission Request Was there a request for admission?: No Admission Attestation Admission request attestation: Not indicated Disposition Plan Disposition Plan: Discharge Discharge Attestation Discharge Attestation: The patient and all family members were given an opportunity to ask questions and understood the discharge instructions. Discharge instructions specifically effects, indications for sooner follow up or return to the emergency department, and the expected course of current diagnosis. Patient condition: Stable Discharge Plan Plan Patient Disposition: HOME (Self Care) Patient condition on transfer: Stable Prescriptions/Referrals Prescriptions/Med Rec: New amoxicillin-pot clavulanate 875-125 mg tablet 1 tab PO BID 10 Days Qty: 20 0RF prednisone 20 mg tablet 20 mg PO QDAY 5 Days Qty: 5 0RF Rx Instructions: start tomorrow lidocaine HCl [Lidocaine Viscous] 2 % solution 10 ml PO Q4HR PRN (Reason: sore throat) Qty: 100 0RF No Action oxycodone-acetaminophen [Percocet] 5-325 mg tablet 1 tab PO Q4H MDD 12 tabs PRN (Reason: pain) Qty: 60 0RF Rx Instructions: Take 1 to 2 tablets every 4-6 hours as needed for severe pain oxycodone-acetaminophen [Percocet] 5-325 mg tablet 2 tab PO Q4H MDD 12 tabs PRN (Reason: pain) Qty: 60 0RF Rx Instructions: Take 1-2 tablets every 4-6 hours as needed for severe pain Referrals: No Primary/Family,Physician [Primary Care Provider] - In 1 week Problem List Clinical Impression: Exudative tonsillitis Patient/Caregiver Discharge Instructions Education Materials: Tonsillitis in Adults Additional Instructions: Follow-up with your primary care physician in 2 days for reevaluation worsening symptoms or any emergent concern call 911 or go to the nearest emergency room take your medication as directed finish the course of antibiotic increase water intake keep hydrated warm saline gargle is advsied Print Language: [place] Stand Alone Forms: Tyra Award Info., Patient Portal Info Letter PA/RESEARCH PROGRAM MANAGER Supervising Physician PA/RESEARCH PROGRAM MANAGER Supervising Physician: dr [email or web address]
== END 2025-01-15 22:16 | disposition home or self-care (01) ==
PROVIDERS: Nurse Practitioner Family; Emergency Provider Emergency Medicine
DX: J03.90 Acute tonsillitis, unspecified (principal)
CPT/HCPCS: 87651; 96372; 99283; J0696; J1100; J1885; J3490

== ENCOUNTER 2025-01-31 10:07 | Outpatient (AMB) | payer BC, SELFPAY ==
[2025-01-31 10:38] VITALS: BP 137/83; PULSE 66; RESP 20; TEMP 36.6; O2SAT 98; BMI 34.6
--- NOTE | 2025-01-31 10:38 | GSCOFFNT_ITS ---
Vital Signs - [facility] 01/31/25 10:38 Height 1.83 m Height Method Measured Weight 115.751 kg Weight Measurement Method Standing Scale BMI 34.6 BP 137/83 H Blood Pressure Source Automatic Cuff Blood Pressure Location Left Upper Arm Position Sitting Respiration 20 Pulse 66 Pulse Source Monitor Temp 98 F Temp Source Temporal Artery Scan Pulse Oximetry (%) 98 Oxygen Delivery Method Room Air Med/Allergies Allergies & Medications Allergies No Known Allergies Allergy (Unknown, Verified 01/31/25 10:39) Medication Reconciliation oxycodone-acetaminophen 5 mg-325 mg tablet (Percocet) 1 tab PO Q4H PRN pain #60 tabs 12/20/24 [Rx Confirmed 01/31/25] oxycodone-acetaminophen 5 mg-325 mg tablet (Percocet) 2 tab PO Q4H PRN pain #60 tabs 12/29/24 [Rx Confirmed 01/31/25] lidocaine HCl 2 % mucosal solution (Lidocaine Viscous) 10 ml PO Q4HR PRN sore throat #100 mL 01/15/25 [Rx Confirmed 01/31/25] MA Intake Visit Data Collection New Patient or Established: Established Patient (seen at [facility] within 3 years) Seen by Clinical Staff ONLY (RN/MA): No Pain Present Currently: No Java Portal Developer Required: No PCP or OBGYN visit in last 3 months: Yes Hx Now: No Do You Feel Safe at Home: Yes Authorities Contacted: N/A Smoking Status Smoking Status: Never smoker Immunization / Flu Flu Vaccine in the Last 12 Months: No Flu Vaccine Exclusion Criteria: Refused by Patient Past Medical History Past Medical History NEUROLOGIC: Negative Neurological Disorders or Seizures CARDIAC: Negative Cardiac Disorders or Congestive Heart Failure RESPIRATORY: Negative Chronic Obstructive Pulmonary Disease (COPD) GASTROINTESTINAL: Positive Gastrointestinal Disorders and Diverticulitis GENITOURINARY: Negative Genitourinary Disorders or Renal Disease ENDOCRINE: Negative Endocrine Disorders, Diabetes Mellitus Type 1 or Diabetes Mellitus Type 2 HEMATOLOGIC: Negative Blood Disorders OTHER HISTORY: Negative Hospitalization, Autoimmune Disease, Shingles, Blood Transfusions, Anesthesia Reactions, MRSA, Clostridium Difficile or Cancer Family History FAMILY HISTORY: Negative Family Psychiatric Problems, Family Respiratory Disorders, Family Cardiac Disorders, Family Gastrointestinal Problems, Family Cancer, Family Surgery or Family Anesthesia Reaction Surgical History SURGICAL: Positive Nose Surgery (nasoplasty) Social History SMOKING STATUS: Smoking status: Never smoker ALCOHOL: Alcohol Intake: Current HOUSING: Housing: House HPI HPI Narrative 39M who presented with a very painful anal fissure s/p botox injection 12/29/24 here for planned follow up. Pt states he feels much better now, he has only rare pains and they are not severe enough to require pain medications. He states he had pain for the first week or so after surgery but since then is feeling much improved and is now able to sit much more comfortably. He did have some constipation related to the pain medication but this has since improved and he has no new complaints ROS Review of Systems Systems Reviewed: All systems reviewed, normal except as documented Objective/Exam General General Appearance: alert, cooperative and well groomed Resp Respiratory exam: Absent respiratory distress Assessment & Plan Diagnosis / Problem List (1) Anal fissure: Status: Acute Assessment & Plan: 39M s/p botox injection for anal fissure 12/29/24, recovering well overall Plan: Follow up in 3 mos Office Procedures GNS Level of Care Nursing/Assessment Patient Status: Established Patient Nursing Assessment/Reassesment: Medication Reconciliation, Update PMH in EMR and Vital Signs Coordination of Care: Complex Care and Chronic Disease 1-5, Consent,records obtained, informed consent, Education Simp Pt/Fam, Results/Orders obtained and Staff clarify orders Established Patient Charge Established Patient Point Assignment: 90 Established Patient Point Charge: EP Level 3 (80-115) Patient Portal Questionaires Social History Living Situation History Housing: House Tobacco History Smoking Status: Never smoker Alcohol History Alcohol Intake: Current Domestic Abuse History Do You Feel Safe at Home: Yes Review of Systems Report any current symptoms Only answer those that you have currently: Past Medical History Past Medical History Have you ever been diagnosed with any of the following: Neurological Problems Seizures: No Cardiology Problems Congestive Heart Failure: No Respiratory Problems Chronic Obstructive Pulmonary Disease (COPD): No Stomache/Intestinal Problems Diverticulitis: Yes Genital/Urinary Problems Renal Disease: No Endocrine Problems Diabetes Mellitus Type 1: No Diabetes Mellitus Type 2: No Other Problems Hospitalization: No Autoimmune Disease: No Shingles: No Blood Transfusions: No Anesthesia Reactions: No MRSA: No Clostridium Difficile: No Cancer: No
== END 2025-01-31 11:25 | disposition home or self-care (01) ==
LOC: HODSRG 10:07
PROVIDERS: PCP Nurse Practitioner Family; Referring Provider Nurse Practitioner Family; Supervising Provider Surgery; Visit Provider Surgery
DX: K60.2 Anal fissure, unspecified (principal)
CPT/HCPCS: 99213; G0463

== ENCOUNTER 2025-06-08 13:42 | Emergency (ER) | payer OTHER, SELFPAY ==
--- NOTE | 2025-06-08 | XR_ITS ---
Examination: CT chest, without intravenous contrast. CT abdomen, without intravenous contrast. . 2-D sagittal and coronal reconstructions. 3-D reconstructions. Date and time of exam: June 08, 2025, 1539 hours INDICATIONS: Patient fell today with injury to the chest and abdomen, chest pain abdomen pain CTDI vol (mgy) 11.8 DLP (MGycm) 606 Technique: Multiple CT images, 3.0 mm slice thickness, obtained chest, abdomen, pelvis, Sagittal and coronal 2-D reconstructions are obtained. 3-D reconstructions Low dose protocols were performed. One or more of the following dose reduction techniques were used; automated exposure control, adjustment of the mA and/or KV according to patient size, use of iterative reconstruction technique. Findings: Thoracic aorta pulmonary arteries appear intact on this noncontrast study No pneumothorax pulmonary contusion or hemothorax The manubrium and the body of the sternum intact No thoracic or lumbar compression fracture Clavicles intact No acute rib fractures No visualized liver splenic or renal laceration No gallstones Abdominal aorta visualized appears intact no free blood in the abdomen Negative for pneumoperitoneum IMPRESSION: Thoracic aorta pulmonary arteries intact No pneumothorax pulmonary contusion or hemothorax Visualized osseous structures appear intact including the sternum
[2025-06-08 14:02] VITALS: BP 132/83; PULSE 77; RESP 18; TEMP 36.5; O2SAT 96; BMI 34.2
--- NOTE | 2025-06-08 14:15 | XR_ITS ---
EXAMINATION: Left knee 2 views Technique number lateral left knee 2 views Date and time: June 08, 2025, 1502 hours INDICATIONS: Injury to the knee today, knee pain. FINDINGS: No fracture or dislocation No foreign body IMPRESSION: No fracture or dislocation
--- NOTE | 2025-06-08 14:15 | XR_ITS ---
EXAMINATION: Right knee 2 views TECHNIQUE: AP lateral right hip views Date and time: June 08, 2025, 1501 hours INDICATIONS: History of the knee today, knee pain. FINDINGS: No fracture or dislocation. No foreign body IMPRESSION: No fracture or dislocation
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
[2025-06-08] MEDS: MORPHINE SULF INJ 4 MG/ML VIAL IM (14:52)
[2025-06-08] MEDS: ONDANSETRON ODT 4 MG TABRAP PO (14:52)
== END 2025-06-08 18:46 | disposition home or self-care (01) ==
PROVIDERS: Emergency Provider Emergency Medicine; PCP Nurse Practitioner Family
DX: S20.211A Contusion of right front wall of thorax, initial encounter (principal); S80.01XA Contusion of right knee, initial encounter; S80.02XA Contusion of left knee, initial encounter; Y35.811A Legal intervention involving manhandling, law enforcement official injured, initial encounter; Y93.89 Activity, other specified; Y92.149 Unspecified place in prison as the place of occurrence of the external cause; Y99.0 Civilian activity done for income or pay
CPT/HCPCS: 71250; 73560; 74150; 96372; 99283; J2270; Q0162